=== PATIENT | male | born 1955 | race Caucasian/White ===

== ENCOUNTER 2018-08-03 14:17 | Emergency (ER) | payer OTHER ==
[~2018-08-03] VITALS: Ht 177.8 cm; Wt 87.1 kg
[~2018-08-03 14:17] MED LIST: BUSPIRONE HCL PO; CIPROFLOXACIN500 M3; CLONAZEPAM 0.50.5 M1 PO; CRESTOR20 MG PO; FLAGYL500 MG; LISINOPRIL20 MG PO; LOVASTATIN 20 M20 MG PO; NEURONTIN 400400 M1 PO; NORCO 5-325 TA1 EACH; SEROQUEL PO; SEROQUEL XR200 MG PO
[2018-08-03] MEDS ORDERED: NAPROSYN500 MG PO ×2 (15:45→15:46)
== END 2018-08-03 16:06 | disposition home or self-care (01) ==
LOC: ER 14:17
DX: M70.21 Olecranon bursitis, right elbow (principal); Y93.89 Activity, other specified